=== PATIENT | male | born 1970 | race American Indian/Alaskan Native ===

== ENCOUNTER 2018-10-29 10:52 | Emergency (ER) | payer SELFPAY ==
[2018-10-29] MEDS ORDERED: NACL 0.9% 1000 ML 1,000 ML IV ONE (11:06)
[2018-10-29] MEDS ORDERED: VALIUM PO ONE (11:06)
[2018-10-29 11:50] LABS: BUN/Creatinine Ratio 9; Blood Urea Nitrogen 8 mg/dL (9-20); Calcium 8.6 mg/dL (8.4-10.2); Hemolysis Index 5
--- NOTE | 2018-10-29 11:50 | Emergency Department Report ---
HPI <MADISON ADAMS - Last Filed: 10/29/18 16:48> - HPI HPI: 48-year-old [place] male presents to the emergency department via EMS with complaint of left neck pain and possible spasm. 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 He was given some morphine in route with EMS. He denies any past medical history. <GUSTABO ROTH Suad - Last Filed: 10/31/18 06:00> - General Chief Complaint: Neck Pain/Injury Time Seen by Provider: 10/29/18 11:06 ED Past Medical Hx <MADISON ADAMS - Last Filed: 10/29/18 16:48> - Past Medical History Previous Medical History?: No - Surgical History Past Surgical History?: No - Social History Smoking Status: Never Smoker Substance Use Type: None <GUSTABO ROTH - Last Filed: 10/31/18 06:00> - Medications Home Medications: Home Medications Medication Instructions Recorded Confirmed Last Taken Type Cyclobenzaprine [Flexeril] 10 mg PO TID PRN #12 tablet 10/29/18 Unknown Rx Ibuprofen 800 mg PO Q8HR PRN #20 tablet 10/29/18 Unknown Rx ED Review of Systems ROS: Stated complaint: NECK PAIN Other details as noted in HPI <MADISON ADAMS - Last Filed: 10/29/18 16:48> ROS: Stated complaint: NECK PAIN Other details as noted in HPI Comment: All other systems reviewed and negative Constitutional: denies: chills, fever Eyes: denies: eye pain, vision change ENT: denies: ear pain, throat pain Respiratory: denies: cough, shortness of breath Cardiovascular: denies: chest pain, palpitations Gastrointestinal: denies: vomiting, melena Genitourinary: denies: dysuria, discharge Musculoskeletal: other (neck pain). denies: back pain Skin: denies: rash, lesions Neurological: denies: headache, weakness <GUSTABO ROTH Last Filed: 10/31/18 06:00> Physical Exam - Physical Exam Vital Signs: Vital Signs 04/03/1110/29/18 10/29/18 10:59 11:37 11:46 Temperature Pulse Rate 70 50 L Respiratory 16 12 Rate Blood Pressure 169/90 O2 Sat by Pulse 98 98 99 Oximetry 10/29/18 10/29/18 10/29/18 12:00 12:16 12:30 Temperature Pulse Rate 73 49 L 51 L Respiratory 20 21 20 Rate Blood Pressure O2 Sat by Pulse 96 Oximetry 10/29/18 10/29/18 10/29/18 12:46 13:00 13:16 Temperature Pulse Rate 52 L 53 L 51 L Respiratory 16 19 17 Rate Blood Pressure O2 Sat by Pulse 96 99 100 Oximetry 10/29/18 10/29/18 10/29/18 14:59 15:00 15:15 Temperature Pulse Rate 41 L 44 L Respiratory 14 19 Rate Blood Pressure 119/65 O2 Sat by Pulse 98 96 100 Oximetry 10/29/18 10/29/18 10/29/18 15:30 15:45 16:00 Temperature Pulse Rate 50 L 48 L 58 L Respiratory 15 15 14 Rate Blood Pressure 118/73 108/58 120/66 O2 Sat by Pulse 97 100 100 Oximetry 10/29/18 10/29/18 16:15 16:25 Temperature 98.6 F Pulse Rate 45 L Respiratory 15 Rate Blood Pressure 121/77 O2 Sat by Pulse 100 Oximetry <MADISON ADAMS - Last Filed: 10/29/18 16:48> - Physical Exam Vital Signs: Vital Signs 10/29/18 10:59 Pulse Rate 70 Respiratory 16 Rate Blood Pressure 169/90 O2 Sat by Pulse 98 Oximetry Physical Exam: GENERAL: The patient is well-developed well-nourished. HEENT: Normocephalic. Atraumatic. Patient has moist mucous membranes. EYES: Extraocular motions are intact. Pupils are equal and reactive to light bilaterally. NECK: Supple. Trachea is midline. There is no posterior tenderness to palpation, step-off or deformity. There is some reproduction of the left-sided neck pain along the scalene and upper sternocleidomastoid muscle. No carotid bruits auscultated. The patient has some instruction to range of motion and almost every direction secondary to pain that it causes to the left lateral region of the neck. CHEST/LUNGS: Clear to auscultation. There is no respiratory distress noted. HEART/CARDIOVASCULAR: Regular. There is no tachycardia. There is no obvious murmur. ABDOMEN: Abdomen is soft, nontender. Patient has normal bowel sounds. There is no abdominal distention. SKIN: Skin is warm and dry. NEURO: The patient is awake, alert, and oriented. The patient is cooperative. The patient has no focal neurologic deficits. The patient has normal speech. Cranial nerves II through XII grossly intact. MUSCULOSKELETAL: There is no tenderness or deformity. There is no limitation range of motion. There is no evidence of acute injury. <GUSTABO ROTH S - Last Filed: 10/31/18 06:00> ED Course Vital Signs 10/29/18 10/29/18 10/29/18 10:59 11:37 11:46 Temperature Pulse Rate 70 50 L Respiratory 16 12 Rate Blood Pressure 169/90 O2 Sat by Pulse 98 98 99 Oximetry 10/29/18 10/29/18 10/29/18 12:00 12:16 12:30 Temperature Pulse Rate 73 49 L 51 L Respiratory 20 21 20 Rate Blood Pressure O2 Sat by Pulse 96 Oximetry 10/29/18 10/29/18 10/29/18 12:46 13:00 13:16 Temperature Pulse Rate 52 L 53 L 51 L Respiratory 16 19 17 Rate Blood Pressure O2 Sat by Pulse 96 99 100 Oximetry 10/29/18 10/29/18 10/29/18 14:59 15:00 15:15 Temperature Pulse Rate 41 L 44 L Respiratory 14 19 Rate Blood Pressure 119/65 O2 Sat by Pulse 98 96 100 Oximetry 10/29/18 10/29/18 10/29/18 15:30 15:45 16:00 Temperature Pulse Rate 50 L 48 L 58 L Respiratory 15 15 14 Rate Blood Pressure 118/73 108/58 120/66 O2 Sat by Pulse 97 100 100 Oximetry 10/29/18 10/29/18 16:15 16:25 Temperature 98.6 F Pulse Rate 45 L Respiratory 15 Rate Blood Pressure 121/77 O2 Sat by Pulse 100 Oximetry - Reevaluation(s) Reevaluation #1: 10/29/18 16:[address] scan of the cervical spine is negative for acute disease. The patient is reexamined by myself. He has no obvious cranial nerve deficits, he is able to turn his head left and right, slowly, and up and down. He walks with a steady gait. He denies chest pain, shortness of breath, nausea, vomiting, diaphoresis. He denies recent massage therapy, chiropractic manipulation, and has no risk factors for blunt cerebrovascular injury. His pain worsens when he turns to the left. There is a reproducible component to it. In addition, he has no past pointing, normal [id number], negative pronator drift, and his annual tour with a normal gait. Extraocular movements intact. Tongue midline. No facial droop. Facial sensation intact to light touch in the V1, V2, V3 distribution bilaterally. 5 and 5 strength in 4 extremities.. Sensation is intact to light touch in 4 extremities. Gait within normal limits. I suspect a musculoskeletal etiology, and concur with Dr. Young initial assessment. Have recommended physical activities as tolerated, avoidance of heavy lifting, pain medication as prescribed, and follow up with primary care, physical therapy, or sports medicine. Patient verbalizes understanding. <MADISON ADAMS - Last Filed: 10/29/18 16:48> Vital Signs 10/29/18 10:59 Pulse Rate 70 Respiratory 16 Rate Blood Pressure 169/90 O2 Sat by Pulse 98 Oximetry <GUSTABO ROTH - Last Filed: 10/31/18 06:00> ED Medical Decision Making - Lab Data Result diagrams: 10/29/18 11:16 10/29/18 11:16 <MADISON ADAMS - Last Filed: 10/29/18 16:48> - Lab Data Result diagrams: 10/29/18 11:16 10/29/18 11:16 - EKG Data -: EKG Interpreted by Ms EKG shows normal: sinus rhythm, axis, intervals, QRS complexes, ST-T waves Rate: bradycardia (53 bpm) - EKG Data When compared to previous EKG there are: previous EKG unavailable Interpretation: normal EKG (with mild bradycardia) - Radiology Data Radiology results: report reviewed PROCEDURE: CT CERVICAL SPINE WO CON TECHNIQUE: Computerized tomography of the cervical spine was performed from the skull base to T1 without contrast material. Coronal and sagittal reconstructed imaging provided. This study is performed without intravenous contrast and the sensitivity for pathology, including neoplasms, adenopathy, abscess, inflammation and infection is reduced CT DOSE LENGTH PRODUCT: 769.2 mGy-cm. HISTORY: neck pain COMPARISONS: None currently available. FINDINGS: There is no fracture. There is no subluxation. There is no atlantooccipital dislocation. C1-C2: Intact. C3-C4: Left minimal asymmetrical bulge. Left uncovertebral arthropathy. Minimal left foraminal narrowing. No significant canal or right foraminal narrowing. C4-C5: Symmetrical minimal bulge. No significant canal or foraminal narrowing. C5-C6: Minimal symmetrical bulge. No significant canal or foraminal narrowing. Remaining cervical levels do not demonstrate significant canal or foraminal narrowing. Prevertebral soft tissue structures are unremarkable. IMPRESSION: * No reference lines provided. * Minimal to mild discogenic disease. This document is electronically signed by Ta Crowe MD., October 29 2018 04:23:47 PM ET Transcribed By: TYM Dictated By: TA CROWE MD Electronically Authenticated By: TA CROWE MD Signed Date/Time: 10/29/18 9620 - Medical Decision Making The patient presents with severe left sided spasmodic neck pain about the area of the scalenes and the SCM. On examination he has pain with any type of ROM and has improvement when the head is still and straight and level. Labs were unremarkable, especially for any type of electrolyte abnormalities or dehydration that would explain a muscle spasm. No leukocytosis. The patient was given doses of pain meds, muscle relaxants and NSAIDS and IVF with some improvement. There was no bruits heard on auscultation. The patient did not have any recent chiropracter visits or any MVA or trauma/injury in the last 6 months - a year. He has no numbness, paresthesias, or any sensory or motor deficits. He has no complaint of any CP or headache. I got an EKG and a troponin to make sure this was not some type of atypical MA or CAD but it resulted as negative. 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 CT cervical spine without contrast shows minimal to mild discogenic disease but otherwise no acute process. The patient was feeling improved prior to discharge. He was given a prescription for NSAIDS and muscle relaxer and a referral for orthopedics. - Differential Diagnosis torticollis, muscle spasm, carotid dissection/aneurysm <GUSTABO ROTH - Last Filed: 10/31/18 06:00> Critical care attestation.: If time is entered above; I have spent that time in minutes in the direct care of this critically ill patient, excluding procedure time. <MADISON ADAMS - Last Filed: 10/29/18 16:48> Critical Care Time: No Critical care attestation.: If time is entered above; I have spent that time in minutes in the direct care of this critically ill patient, excluding procedure time. <GUSTABO ROTH S - Last Filed: 10/31/18 06:00> ED Disposition Is pt being admited?: No Does the pt Need Aspirin: No <MADISON ADAMS - Last Filed: 10/29/18 16:48> Is pt being admited?: No Time of Disposition: 16:01 <GUSTABO ROTH S - Last Filed: 10/31/18 06:00> Clinical Impression: Neck pain on left side, Neck muscle spasm Disposition: TO HOME OR SELFCARE Condition: Good Instructions: Spasmodic Torticollis (ED), Muscle Spasm (ED) Additional Instructions: Please follow up with a primary care physician in the next few days. I am giving him a referral for 2 different local orthopedists to follow up regarding your neck pain. Return to the emergency Department with any worsening of your symptoms or any acute distress. You have been prescribed a medication that can be sedating. Therefore, this medication cannot be taken prior to driving, working, being responsible for children, and cannot be mixed with alcohol of any quantity. Prescriptions: Cyclobenzaprine [Flexeril] 10 mg PO TID PRN #12 tablet PRN Reason: Muscle Spasm Ibuprofen 800 mg PO Q8HR PRN #20 tablet PRN Reason: Pain , Severe (7-10) Referrals: CARLOS HERNDON MD [Staff Physician] - 2-3 Days [facility] [Provider Group] - 2-3 Days Forms: Work/School Release Form(ED)
[2018-10-29 11:55] LABS: Basophils # (Auto) 0.1 K/mm3 (0.0-0.1); Basophils % (Auto) 1.1 % (0.0-1.8); Eosinophils # (Auto) 0.2 K/mm3 (0.0-0.4); Eosinophils % (Auto) 4.5 % (0.0-4.3); Hematocrit 38.2 % (35.5-45.6); Hemoglobin 12.9 gm/dl (11.8-15.2); Lymphocytes # (Auto) 1.7 K/mm3 (1.2-5.4); Lymphocytes % (Auto) 33.1 % (13.4-35.0); Mean Corpuscular HGB Conc 34 % (32-34); Mean Corpuscular Volume 82 fl (84-94); Monocytes # (Auto) 0.6 K/mm3 (0.0-0.8); Monocytes % (Auto) 10.7 % (0.0-7.3); Platelet Count 232 K/mm3 (140-440); Red Blood Count 4.68 M/mm3 (3.65-5.03); Red Cell Distribution Width 14.4 % (13.2-15.2)
[2018-10-29] MEDS ORDERED: MORPHINE ONE (12:10)
[2018-10-29] MEDS ORDERED: MORPHINE IV ONE (12:13)
[2018-10-29] MEDS ORDERED: TORADOL IV ONE (13:21)
[2018-10-29] MEDS ORDERED: ZOFRAN ONE (14:54)
[2018-10-29] MEDS ORDERED: ZOFRAN IV ONE (15:01)
--- NOTE | 2018-10-29 16:25 | Cat Scan Report ---
PROCEDURE: CT CERVICAL SPINE WO CON TECHNIQUE: Computerized tomography of the cervical spine was performed from the skull base to T1 with out contrast material. Coronal and sagittal reconstructed imaging provided. This study is performed w ithout intravenous contrast and the sensitivity for pathology, including neoplasms, adenopathy, absce ss, inflammation and infection is reduced CT DOSE LENGTH PRODUCT: 769.2 mGy-cm. HISTORY: neck pain COMPARISONS: None currently available. FINDINGS: There is no fracture. There is no subluxation. There is no atlantooccipital dislocation. C1-C2: Intact. C3-C4: Left minimal asymmetrical bulge. Left uncovertebral arthropathy. Minimal left foraminal narrow ing. No significant canal or right foraminal narrowing. C4-C5: Symmetrical minimal bulge. No significant canal or foraminal narrowing. C5-C6: Minimal symmetrical bulge. No significant canal or foraminal narrowing. Remaining cervical levels do not demonstrate significant canal or foraminal narrowing. Prevertebral soft tissue structures are unremarkable. IMPRESSION: * No reference lines provided. * Minimal to mild discogenic disease. This document is electronically signed by Ta Mcgrath MD., October 29 2018 04:23:47 PM ET
[2018-10-29 16:31] VITALS: BP 121/77
== END 2018-10-29 18:42 | disposition home or self-care (01) ==
LOC: ED 10:52
DX: M54.2 Cervicalgia (principal); M62.838 Other muscle spasm
CPT/HCPCS: 36415; 72125; 80048; 83735; 84484; 85025; 93005; 93010; 96374; 96375; 99284; J1885; J2270; J2405; J7030